=== PATIENT | female | born 1965 ===

== ENCOUNTER → 2017-09-05 10:02 | Outpatient (CLI) | payer OTHER | END | disposition home or self-care (01) | LOC: LAB 10:02 | DX: N92.0 Excessive and frequent menstruation with regular cycle (principal); R30.0 Dysuria ==

== ENCOUNTER → 2017-09-05 10:05 | Outpatient (CLI) | payer OTHER | END | disposition home or self-care (01) | LOC: RAD 10:05 | DX: R05 Cough (principal) ==